=== PATIENT | male | born 1940 | race Hispanic/Latino ===

== ENCOUNTER 2018-04-02 19:59 | Emergency (ER) | payer OTHER ==
--- NOTE | 2018-04-02 20:07 | ED HEADACHE COMPLAINT ---
History of Present Illness General Chief Complaint: Facial or Head Injury Stated Complaint: NEEDS HEAD CT FROM [facility] Source: patient Exam Limitations: no limitations Vital Signs & Intake/Output Vital Signs & Intake/Output Vital Signs Date Time Temp Pulse Resp B/P B/P Pulse O2 O2 Flow FiO2 Mean Ox Delivery Rate 04/02 2005 98.3 86 17 145/71 97 Room Air Allergies Coded Allergies: No Known Allergies (04/02/18) Triage Note: PT SENT TO ED FROM [facility] FOR HEAD CT. PT COMPLAINED OF RIGHT SIDED HEADACHE WITH POSITION CHANGES BEGINNING A COUPLE DAYS AGO. ALSO REPORTS "MY COORIDATION IS A BIT OFF". HX SUBDURAL HEMATOMA Triage Nurses Notes Reviewed? yes Onset: Gradual Duration: day(s): Timing: recent history Quality/Severity: mild, moderate Head Injury Location: global Modifying Factors: Improves With: rest. HPI: 77-year-old gentleman history of subdural hematoma, evacuated 03/12/18, referred from [facility] given a diffuse headache. He states that he developed a headache during the day. He has no nausea vomiting dizziness. He states it feels differently from his prior subdural hematoma. He notes no trauma. He is otherwise well, able to ambulate without problem. No change in his thinking or mental sensorium per patient. Past History Travel History Traveled to [place] past 21 day No Medical History Any Pertinent Medical History? see below for history Neurological: subdural hematoma Psychiatric: alcohol dependence Surgical History Surgical History: bilateral craniotomy w/esha holes 03/12/18 Family History Hx Contributory? No Review of Systems Review of Systems Constitutional: Reports: no symptoms. Eyes: Reports: no symptoms. Ears, Nose, Throat, Mouth: Reports: no symptoms. Respiratory: Reports: no symptoms. Cardiovascular: Reports: no symptoms. Gastrointestinal/Abdominal: Reports: no symptoms. Genitourinary: Reports: no symptoms. Musculoskeletal: Reports: no symptoms. Skin: Reports: no symptoms. Neurological/Psychological: Reports: no symptoms. Hematologic/Endocrine: Reports: no symptoms. Endocrine: Reports: no symptoms. Immunologic/Allergic: Reports: no symptoms. All Other Systems: Reviewed and Negative Physical Exam Physical Exam Cranial Nerves: normal hearing, normal speech, PERRL Comments: Review of Systems - except as otherwise noted in HPI Physical Exam Physical Exam General Appearance: well developed/nourished, no apparent distress Head: , mild diffuse tenderness along scalp musculature, surgical scar well healed, no sign of infection Eyes: Bilateral: normal appearance. Ears, Nose, Throat: normal pharynx, normal ENT inspection Neck: normal inspection, supple, full range of motion Respiratory: normal breath sounds, chest non-tender, no respiratory distress, quiet respiration, lungs clear Cardiovascular: regular rate/rhythm Gastrointestinal: normal bowel sounds, soft, non-tender, no organomegaly Back: normal inspection, normal range of motion Extremities: normal inspection, normal capillary refill, normal range of motion, no edema Neurologic/Psych: no motor/sensory deficits, awake, alert, oriented x 3 Skin: intact, normal color, warm/dry Core Measures Sepsis Present: No Sepsis Focused Exam Completed? No Progress Differential Diagnosis: cluster GIBSON, IC mass/tumor, intracranial Hem., migraine GIBSON, musculoskeletal pain, tension GIBSON Plan of Care: Orders Procedure Date/time Status CT HEAD WO IV CONTRAST 04/02 2002 Active Diagnostic Imaging: Viewed by Me: CT Scan. Discussed w/RAD: CT Scan. Radiology Impression: PATIENT: ELIEZER WALKER PRESENT AGE: 77 PATIENT ACCOUNT NO: [id number] : 40 LOCATION: [facility] ORDERING PHYSICIAN: Delonte SRINIVASAN SERVICE DATE: 04/02/18 EXAM TYPE: CAT - CT HEAD WO IV CONTRAST EXAMINATION: CT HEAD WITHOUT CONTRAST CLINICAL INFORMATION: Headache COMPARISON: None TECHNIQUE: Contiguous axial imaging was performed from the skull base to vertex without intravenous administration of contrast. DLP: 631 mGy-cm FINDINGS: The patient is status post post bilateral craniotomy and esha hole placement. There are bilateral subdural hematomas, acute on subacute. The maximum thickness of the subdural hematoma on the right side is about 1.9 cm in posterior right frontal lobe, seen on axial image 46/62 from series 2 and coronal image 135. The maximum thickness of the left subdural hematoma is about 1.5 in anterior left frontal lobe, seen on coronal image 95. Effacement of the adjacent sulci noted. A small amount of intracranial emphysema also noted. There is no midline/subfalcine shift. There is no evidence of transtentorial herniation. There is no CT evidence of acute territorial ischemia. The ventricles are normal in size. Prior left-sided mastoidectomy. The right mastoid air cells are pneumatized. The paranasal sinuses demonstrate mild mucosal thickening of posterior right ethmoid air cells. No air-fluid level. The orbits are intact. Atherosclerotic calcifications of the cavernous parts of bilateral carotid arteries noted. IMPRESSION: Patient is status post bilateral frontal craniotomy and esha hole placement. Bilateral acute on subacute subdural hematomas, involving the supratentorial brain, predominantly the frontoparietal regions. No evidence of midline shift or transtentorial herniation. The findings were discussed with Dr. Vega at 9:50 PM on 04/02/2018 by myself. DICTATED BY: Aria Casey MD DATE/TIME DICTATED:04/02/182147 EXERCISE SPECIALIST: ZAKIYA DATE/TIME TRANSCRIBED:04/02/182147 CONFIDENTIAL, DO NOT COPY WITHOUT APPROPRIATE AUTHORIZATION. <Electronically signed in Other Vendor System> SIGNED BY: Aria Casey MD 04/02/182203 Departure Departure Disposition: OTHER [facility] ([facility]) Condition: Stable Clinical Impression Primary Impression: Headache Secondary Impressions: Subdural hematoma Departure Forms: Customer Survey General Discharge Information Comments 04/02/18, 21:52...discussed with [facility]... acute and on sub acute bilateral subdural hematomas, no old films to compare. 04/02/18, 22:09... discussed with dr. Montes ([facility]) who accepts patient. Critical Care Note Critical Care Note Critical Care Time: 30-74 min
[2018-04-02 22:00] VITALS: BP 135/63
--- NOTE | 2018-04-02 22:04 | CT SCAN REPORT ---
EXAMINATION: CT HEAD WITHOUT CONTRAST CLINICAL INFORMATION: Headache COMPARISON: None TECHNIQUE: Contiguous axial imaging was performed from the skull base to vertex without intravenous administration of contrast. DLP: 631 mGy-cm FINDINGS: The patient is status post post bilateral craniotomy and esha hole placement. There are bilateral subdural hematomas, acute on subacute. The maximum thickness of the subdural hematoma on the right side is about 1.9 cm in posterior right frontal lobe, seen on axial image 46/62 from series 2 and coronal image 135. The maximum thickness of the left subdural hematoma is about 1.5 in anterior left frontal lobe, seen on coronal image 95. Effacement of the adjacent sulci noted. A small amount of intracranial emphysema also noted. There is no midline/subfalcine shift. There is no evidence of transtentorial herniation. There is no CT evidence of acute territorial ischemia. The ventricles are normal in size. Prior left-sided mastoidectomy. The right mastoid air cells are pneumatized. The paranasal sinuses demonstrate mild mucosal thickening of posterior right ethmoid air cells. No air-fluid level. The orbits are intact. Atherosclerotic calcifications of the cavernous parts of bilateral carotid arteries noted. IMPRESSION: Patient is status post bilateral frontal craniotomy and esha hole placement. Bilateral acute on subacute subdural hematomas, involving the supratentorial brain, predominantly the frontoparietal regions. No evidence of midline shift or transtentorial herniation. The findings were discussed with Dr. Vega at 9:50 PM on 04/02/2018 by myself.
== END 2018-04-02 22:52 | disposition short-term general hospital (02) ==
LOC: ERH 19:59
DX: I62.00 Nontraumatic subdural hemorrhage, unspecified (principal)